=== PATIENT | male | born 1985 | race Caucasian/White ===

== ENCOUNTER 2023-03-23 16:00 | Emergency (ER) | payer OTHER ==
[2023-03-23] MEDS ORDERED: Sodium Chloride 0.9% 10 ML Syringe FLUSH PRN (16:07)
[2023-03-23] MEDS ORDERED: [UNRECOGNIZED DRUG - OTHER] IV PRN (16:28)
[2023-03-23 16:49] LABS: BASOPHILS ABSOLUTE AUTO 0.03 K/mm3 (0.01-0.08); BASOPHILS PERCENT AUTO 0.4 % (0.1-1.2); EOSINOPHILS ABSOLUTE AUTO 0.04 K/mm3 (0.04-0.54); EOSINOPHILS PERCENT AUTO 0.5 (0.8-7.0); HEMATOCRIT 41.7 % (40.1-51.0); HEMOGLOBIN 14.5 gm/dl (13.7-17.5); LYMPHOCYTES ABSOLUTE AUTO 1.34 K/mm3 (1.32-3.57); LYMPHOCYTES PERCENT AUTO 18.3 % (21.8-53.1); MEAN CORPUSCULAR HEMOGLOBIN 32.2 pg (25.7-32.2); MEAN CORPUSCULAR HGB CONC 34.8 g/dl (32.2-35.5); MEAN CORPUSCULAR VOLUME 92.7 fl (79.0-92.2); MEAN PLATELET VOLUME 8.4 fl (9.4-12.3); MONOCYTES ABSOLUTE AUTO 0.77 K/mm3 (0.30-0.82); MONOCYTES PERCENT AUTO 10.5 % (5.3-12.2); NEUTROPHILS ABSOLUTE AUTO 5.15 K/mm3 (1.78-5.38); NEUTROPHILS PERCENT AUTO 70.3 % (34.0-67.9); PLATELET COUNT,PLT 262 K/mm3 (163-337); WHITE BLOOD CELL COUNT,WBC 7.33 K/mm3 (4.23-9.07)
[2023-03-23 17:05] LABS: INR 1.08; PROTHROMBIN TIME 11.5 SECONDS (9.7-12.0)
[2023-03-23 17:07] LABS: A/G RATIO 1.3 (1-2); ALBUMIN 3.9 g/dl (3.4-5.0); ANION GAP 11.1 (5-15); BILIRUBIN TOTAL 0.4 mg/dL (0.2-1.0); BUN/CREATININE RATIO 16.4 (14-18); CALCIUM 8.4 mg/dL (8.5-10.1); CREATININE 1.1 mg/dL (0.7-1.3); EST CRCL DRUG DOSING (CG) 85.96 mL/min; POTASSIUM,K 4.1 mEq/L (3.5-5.1); PTT,PARTIAL THROMBOPLSTIN TIME 24.8 SECONDS (21.7-31.4)
[2023-03-23 17:14] LABS: D-DIMER QUANTITATIVE < 0.19 mg/L (0.19-0.50)
[2023-03-23] MEDS ORDERED: Acetaminophen 325 MG Tab PO PRN (20:28)
[2023-03-23] MEDS ORDERED: Ondansetron 4 MG Tab.DIS PO PRN (20:28)
[2023-03-23] MEDS ORDERED: Ondansetron 4 MG/2 ML SDV IV PRN (20:28)
[2023-03-23] MEDS ORDERED: [UNRECOGNIZED DRUG - OTHER] IV ONE (20:31)
[2023-03-23] MEDS ORDERED: Sodium Chloride 0.9% 250 ML ONE (20:37)
[2023-03-23 22:31] LABS: BASOPHILS ABSOLUTE AUTO 0.03 K/mm3 (0.01-0.08); BASOPHILS PERCENT AUTO 0.2 % (0.1-1.2); EOSINOPHILS PERCENT AUTO 0 (0.8-7.0); HEMATOCRIT 43.3 % (40.1-51.0); HEMOGLOBIN 15.1 gm/dl (13.7-17.5); IMMATURE GRAN ABSOLUTE AUTO 0.03 K/mm3 (0.00-0.10); IMMATURE GRAN PERCENT AUTO 0.2 % (<=1.0); LYMPHOCYTES ABSOLUTE AUTO 1.16 K/mm3 (1.32-3.57); LYMPHOCYTES PERCENT AUTO 7.5 % (21.8-53.1); MEAN CORPUSCULAR HEMOGLOBIN 32.2 pg (25.7-32.2); MEAN CORPUSCULAR HGB CONC 34.9 g/dl (32.2-35.5); MEAN CORPUSCULAR VOLUME 92.3 fl (79.0-92.2); MEAN PLATELET VOLUME 8.4 fl (9.4-12.3); MONOCYTES PERCENT AUTO 11.6 % (5.3-12.2); NEUTROPHILS ABSOLUTE AUTO 12.46 K/mm3 (1.78-5.38); NEUTROPHILS PERCENT AUTO 80.5 % (34.0-67.9); PLATELET COUNT,PLT 277 K/mm3 (163-337); RED BLOOD CELL COUNT 4.69 M/mm3 (4.63-6.08); WHITE BLOOD CELL COUNT,WBC 15.48 K/mm3 (4.23-9.07)
[2023-03-23] MEDS ORDERED: fentaNYL 100 MCG/2 ML SDV IVPUSH ONE (22:34)
[2023-03-23 22:51] LABS: INR 1.08; PROTHROMBIN TIME 11.5 SECONDS (9.7-12.0)
[2023-03-23 22:52] LABS: D-DIMER QUANTITATIVE 0.37 mg/L (0.19-0.50)
[2023-03-23 22:53] LABS: PTT,PARTIAL THROMBOPLSTIN TIME 23.9 SECONDS (21.7-31.4)
[2023-03-23 22:54] LABS: A/G RATIO 1.3 (1-2); ALBUMIN 3.9 g/dl (3.4-5.0); ANION GAP 13.7 (5-15); BILIRUBIN TOTAL 0.6 mg/dL (0.2-1.0); BUN/CREATININE RATIO 17.5 (14-18); CALCIUM 8.8 mg/dL (8.5-10.1); CREATININE 1.2 mg/dL (0.7-1.3); EST CRCL DRUG DOSING (CG) 78.8 mL/min; POTASSIUM,K 3.7 mEq/L (3.5-5.1); PROTEIN TOTAL,TP 6.9 g/dl (6.4-8.2)
== END 2023-03-23 22:45 ==
LOC: JD.ED 16:00
DX: T63.011A Toxic effect of rattlesnake venom, accidental (unintentional), initial encounter (principal)
CPT/HCPCS: 36415; 80053; 82550; 85025; 85379; 85384; 85610; 85730; 96365; 96366; 96375; 99285; J0840; J3010; J7050